=== PATIENT | male | born 1975 | race African-American/Black ===

== ENCOUNTER 2024-09-06 09:59 | Emergency (ER) | payer OTHER, SELFPAY ==
[2024-09-06 10:05] VITALS: BP 157/101; PULSE 75; RESP 16; TEMP 36.4; O2SAT 100
--- NOTE | 2024-09-06 10:18 | ED_ITS ---
HPI - General Adult General Chief complaint: Unspecified Stated complaint: EYE AND FEET ISSUES Time Seen by Provider: 09/06/24 10:16 History of Present Illness HPI narrative: Patient is a 48-year-old male who presents to the ER with concerns of a right eye lump, and tingling/burning in his feet bilaterally. He reports he 1st noticed his feet itching. Patient believes the itching started after he dropped soap on my feet and did not wash it off afterwards. He repor ts since then he has been experiencing tingling and burning in his feet. Patient reports he bought [id number] athlete's foot spray but that has not helped relieve his symptoms. He denies any calf pain, drug use, recent fevers, or history of diabetes. Patient reports his only history is an appendectomy and one other abdominal surgery. He endorses a self diagnosis history of depression and migraines. Patient reports his migraines are cyclical and tend to happen on the Sabbath. Related Data Allergies Allergy/AdvReac Type Severity Reaction Status Date / Time No Known Allergies Allergy Verified 09/06/24 10:12 Review of Systems Review of Systems: All systems reviewed & are unremarkable except as noted in HPI and below Exam Narrative: GENERAL: Well appearing, well-nourished, non-toxic, in no acute distress. HEAD: Normocephalic, atraumatic. R upper eyelid stye-no drainage noted NECK: Supple. No adenopathy, no masses. RESPIRATORY: Airway patent, respirations nonlabored. Clear to auscultation bilaterally, no rales, rhonchi, wheezing. CARDIOVASCULAR: Regular rate and rhythm without murmurs, rubs, or gallops. Peripheral pulses 2+ and equal bilaterally. ABDOMINAL: Soft, nontender, nondistended, no hepatosplenomegaly. Normoactive BS. MUSCULOSKELETAL: Moves all extremities. Strength/ROM intact without gross deformities. SKIN: Warm, dry, normal color. No rashes. L upper chest scaling rash, No rashes/scratches/lesions/abnormalities to feet NEURO: A&O X3. Speech clear. Cranial nerves II-XII intact. No ataxic movements. PSYCHIATRIC: Appropriate mood, but endorses feeling of daily depression. Pt declines a mental health evaluation stating I don't like to talk about the trauma from my past and I'm against taking happy pills. Course Vital Signs Vital signs: Vital Signs Temperature 36.4 C 09/06/24 10:05 Pulse Rate 75 09/06/24 10:05 Respiratory Rate 16 09/06/24 10:05 Blood Pressure 157/101 H 09/06/24 10:05 Pulse Oximetry 100 09/06/24 10:05 Oxygen Delivery Room Air 09/06/24 10:05 Temperature 36.4 C 09/06/24 10:05 Pulse Rate 66 09/06/24 11:15 Respiratory Rate 12 09/06/24 11:15 Blood Pressure 145/95 H 09/06/24 11:15 Pulse Oximetry 100 09/06/24 11:15 Oxygen Delivery Room Air 09/06/24 10:05 Medical Decision Making MDM Narrative Medical decision making narrative: Patient is a 48-year-old male who presents to the ER with concerns of a right eye lump, and tingling/burning in his feet bilaterally. He reports he 1st noticed his feet itching. Patient believes the itching started after he dropped soap on my feet and did not wash it off afterwards. He reports since then he has been experiencing tingling and burning in his feet. Patient reports he bought [id number] athlete's foot spray but that has not helped relieve his symptoms. He denies any calf pain, drug use, recent fevers, or history of diabetes. Patient reports his only history is an appendectomy and one other abdominal surgery. He endorses a self diagnosis history of depression and migraines. Patient reports his migraines are cyclical and tend to happen on the Sabbath. Labs Ordered: Point of care glucose Imaging Ordered: None necessary Medications Ordered: Erythromycin ointment Diagnosis: hordeolum, tingling in bilateral feet, eczema Patient Education/Shared MDM: Results of lab work shared with patient. It was explained to him that he does not have diabetes, so further evaluation of the numbness/tingling in his lower extremities will need to be performed as an outpatient. Pt declined a mental health evaluation. The stye in his R eye will be treated with erythromycin ointment with the first dose given in the ER. L upper chest rash will be treated with hydrocortisone cream. Patient strongly advised to establish care with a PCP as soon as possible. He will be discharged home with a prescription for erythromycin ointment and hydrocortisone cream for the patch of skin on his L upper chest. Strict return precautions provided. Patient verbalized understanding and is in agreement with plan. Vital signs stable at time of discharge. All questions answered. Differential Diagnosis Differential Diagnosis: hordeolum, diabetes, neuropathy, conjunctivitis, eczema Vital Signs Vital Signs: Vital Signs Temperature 36.4 C 09/06/24 10:05 Pulse Rate 75 09/06/24 10:05 Respiratory Rate 16 09/06/24 10:05 Blood Pressure 157/101 H 09/06/24 10:05 Pulse Oximetry 100 09/06/24 10:05 Oxygen Delivery Room Air 09/06/24 10:05 Temperature 36.4 C 09/06/24 10:05 Pulse Rate 66 09/06/24 11:15 Respiratory Rate 12 09/06/24 11:15 Blood Pressure 145/95 H 09/06/24 11:15 Pulse Oximetry 100 09/06/24 11:15 Oxygen Delivery Room Air 09/06/24 10:05 Lab Data Lab results reviewed: Yes I reviewed the patient's lab results. Labs: Lab Results 09/06/24 Range/Units 13:52 POC Capillary Glucose Pending Discharge Plan Discharge Clinical Impression: Hordeolum externum (stye), Numbness and tingling of both lower extremities Patient Disposition: Home Condition: Stable Instructions: Antibiotic Form, Remberto (ED) Additional Instructions: Please return to the ER with any worsening symptoms. Establish care with a primary care provider as soon as possible. Complete your full dose of eye antibiotics. Patient Language: Telugu Prescriptions: New erythromycin 5 mg/gram (0.5 %) ointment 0.5 inch EACH EYE BID Qty: 3.5 0RF hydrocortisone 2.5 % cream 1 applic topical TID PRN (Reason: skin irritation) Qty: 28 0RF acetaminophen 500 mg tablet 500 mg PO QID PRN (Reason: pain, headache) Qty: 20 0RF Follow-up/Referrals: [facility] [Provider Group] [facility] [Provider Group] Dulce Mtz APRN [Advanced Practice Nurse] - Jane Hayward APN-C [Advanced Practice Nurse] - PHYSICIAN,SUBGRADE TESTER [Non-Staff] - Sergo Henriquez MD [Physician] - (ophthalmology) Time of Disposition: 14:07
[2024-09-06 11:15] VITALS: BP 145/95; PULSE 66; RESP 12; O2SAT 100
[2024-09-06] MEDS: ERYTHROMYCIN OPHTH OINTMENT 1 GM TUBE 1 APPLIC EACH EYE (11:20)
--- OUTSIDE RECORDS SUMMARY | 2024-09-06 11:25 | XMS_ITS | Clinical Summary ---
[facility] Organization [facility] [place] [address] [place] [address] Care Team Providers Care Nitrogen Operator Name Role Phone Unavailable Primary Care Provider Unavailabl e Social History Tobacco Use Types Packs/Day Years Used Date Smoking Tobacco: Never Assessed Sex and Gender Information Value Date Recorded Sex Assigned at Not on file Legal Sex Male 1:19 AM PST Gender Identity Not on file Sexual Orientation Not on file Plan of Treatment Not on file
--- OUTSIDE RECORDS SUMMARY | 2024-09-06 11:25 | XMS_ITS | Encounter Summary ---
Author Organization [facility] Address [address] [place] [address] Care Team Providers Care In Flight Refueling Manager Name Role Phone Unavailable Primary Care Provider Unavailabl e Prior Encounters Date Type Department Care Team Description 05/17/2019 Converted CPS Chart Documents [facility] [address] [place] [phone] <No scans attached> 05/17/2019 Converted 13x Documents [facility] [address] [place] [phone] <No scans attached> Plan of Treatment Not on file Procedures Procedure Name Priority Date/Time Associated Diagnosis Comments ORAL SURG CONSULT Routine 04/01/2019 2:00 AM CINDER DUMP CRANE OPERATOR 17 REMOVAL OF IMPACTED TOOTH - PARTIALLY BONY Routine 04/01/2019 2:00 AM CINDER DUMP CRANE OPERATOR 16 EXTRACTION, ERUPTED TOOTH REQUIRING REMOVAL OF BONE AND/OR SECTIONING OF TOOTH Routine 04/01/2019 2:00 AM CINDER DUMP CRANE OPERATOR 11 EXTRACTION, ERUPTED TOOTH REQUIRING REMOVAL OF BONE AND/OR SECTIONING OF TOOTH Routine 04/01/2019 2:00 AM CINDER DUMP CRANE OPERATOR DENTAL PLAN ENROLL 1 Routine 04/01/2019 2:00 AM CINDER DUMP CRANE OPERATOR Visit Diagnoses Not on file
[2024-09-06 13:56] LABS: Glucose Point of Care 104 mg/dl (65-105)
== END 2024-09-06 14:23 | disposition home or self-care (01) ==
PROVIDERS: Emergency Provider Registered Nurse
DX: R20.2 Paresthesia of skin (principal); R20.0 Anesthesia of skin; H00.011 Hordeolum externum right upper eyelid
CPT/HCPCS: 82948; 99283; A9270

== ENCOUNTER 2024-11-05 07:51 | Emergency (ER) | payer OTHER, SELFPAY ==
--- NOTE | ~2024-11-05 | XR_ITS ---
CHEST RADIOGRAPH, PA AND LATERAL CLINICAL HISTORY: cough . COMPARISON: None available TECHNIQUE: PA and lateral views of the chest. FINDINGS The cardiomediastinal silhouette is unremarkable. The lungs are clear. IMPRESSION: No focal infiltrate or effusion. Reviewed, dictated and finalized at location A.
--- OUTSIDE RECORDS SUMMARY | 2024-11-05 07:54 | XMS_ITS | Clinical Summary ---
Author Organization [facility] Health Address [address] [place] [address] Care Team Providers Care Contracts Administrator Name Role Phone Unavailable Primary Care Provider [...]
--- OUTSIDE RECORDS SUMMARY | 2024-11-05 07:54 | XMS_ITS | Encounter Summary ---
Author Organization [facility] Health Address [address] [place] [address] Care Team Providers Care Food And Nutrition Services Assistant Name Role Phone Unavailable Primary Care Provider Unavailabl e Prior Encounters Date Type Department Care Team Description 05/17/2019 Converted CPS Chart Documents [facility] [address] [place] [phone] <No scans attached> 05/17/2019 Converted 13x Documents [facility] [address] [place] [phone] <No scans attached> Plan of Treatment Not on file Procedures Procedure Name Priority Date/Time Associated Diagnosis Comments OS CONSULT Routine 04/01/2019 2:00 AM SLICE CUTTING MACHINE OPERATOR 17 REMOVAL OF IMPACTED TOOTH - PARTIALLY BONY Routine 04/01/2019 2:00 AM SLICE CUTTING MACHINE OPERATOR 16 EXTRACTION, ERUPTED TOOTH REQUIRING REMOVAL OF BONE AND/OR SECTIONING OF TOOTH Routine 04/01/2019 2:00 AM SLICE CUTTING MACHINE OPERATOR 11 EXTRACTION, ERUPTED TOOTH REQUIRING REMOVAL OF BONE AND/OR SECTIONING OF TOOTH Routine 04/01/2019 2:00 AM SLICE CUTTING MACHINE OPERATOR DENTAL PLAN ENROLL 1 Routine 04/01/2019 2:00 AM SLICE CUTTING MACHINE OPERATOR Visit Diagnoses Not on file
--- OUTSIDE RECORDS SUMMARY | 2024-11-05 08:21 | XMS_ITS | Clinical Summary ---
Author Organization [facility] Health Address [address] [place] [address] Care Team Providers Care Tower Hand Name Role Phone Unavailable Primary Care Provider [...]
--- OUTSIDE RECORDS SUMMARY | 2024-11-05 08:21 | XMS_ITS | Encounter Summary ---
Author Organization [facility] Health Address [address] [place] [address] Care Team Providers Care Substitute School Nurse Name Role Phone Unavailable Primary Care Provider Unavailabl e Prior Encounters Date Type Department Care Team Description 05/17/2019 Converted CPS Chart Documents [facility] [address] [place] [phone] <No scans attached> 05/17/2019 Converted 13x Documents [facility] [address] [place] [phone] <No scans attached> Plan of Treatment Not on file Procedures Procedure Name Priority Date/Time Associated Diagnosis Comments OS CONSULT Routine 04/01/2019 2:00 AM JAVA WEBSPHERE DEVELOPER 17 REMOVAL OF IMPACTED TOOTH - PARTIALLY BONY Routine 04/01/2019 2:00 AM JAVA WEBSPHERE DEVELOPER 16 EXTRACTION, ERUPTED TOOTH REQUIRING REMOVAL OF BONE AND/OR SECTIONING OF TOOTH Routine 04/01/2019 2:00 AM JAVA WEBSPHERE DEVELOPER 11 EXTRACTION, ERUPTED TOOTH REQUIRING REMOVAL OF BONE AND/OR SECTIONING OF TOOTH Routine 04/01/2019 2:00 AM JAVA WEBSPHERE DEVELOPER DENTAL PLAN ENROLL 1 Routine 04/01/2019 2:00 AM JAVA WEBSPHERE DEVELOPER Visit Diagnoses Not on file
[2024-11-05 08:31] VITALS: BP 180/105; PULSE 81; RESP 18; TEMP 36.9; O2SAT 100
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
[2024-11-05 08:46] VITALS: RESP 16; O2SAT 100
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
--- NOTE | 2024-11-05 09:16 | ED.GENADULT ---
HPI - General Adult General Chief complaint: Unspecified Stated complaint: sweating issues Time Seen by Provider: 11/05/24 08:16 History of Present Illness HPI narrative: Patient is a 48-year-old male who presents ER with reports of feeling sweaty. It occurs at night when he sleeping. He thinks the air conditioner is on in his dad's room but not the living room where he is sleeping. He has had infrequent cough. He is concerned he may have an infection. No known sick contacts. Mild body aches. Related Data Allergies Allergy/AdvReac Type Severity Reaction Status Date / Time No Known Allergies Allergy Verified 11/05/24 08:40 Review of Systems Review of Systems: All systems reviewed & are unremarkable except as noted in HPI and below Constitutional: Constitutional: Reports no additional constitutional complaints Cardiovascular: Cardiovascular: Reports no additional cardiovascular complaints Respiratory: Respiratory: Reports no additional respiratory complaints Gastrointestinal: Gastrointestinal: Reports no additional gastrointestinal complaints Musculoskeletal: Musculoskeletal: Reports no additional musculoskeletal complaints PMFSH Past Medical History Medical History (Updated 11/05/24 @ 10:18 by Wong Varela MD) Healthy adult male Surgical History Surgical History (Updated 11/05/24 @ 09:20 by Wong Varela MD) No pertinent past surgical history Exam Narrative: GENERAL: Well-appearing, well-nourished, and in no acute distress. HEAD: Normocephalic, atraumatic. CHEST: Clear to auscultation. No respiratory distress. HEART: Regular rate and rhythm. Normal peripheral pulses. ABDOMEN: Soft, nontender, nondistended. EXTREMITIES: Normal range of motion. No edema. SKIN: Warm, dry, no rash. NEURO: Alert and oriented x3. PSYCH: Normal mood and affect. Course Course Emergency Course: Unremarkable evaluation. Appropriate for discharge home. Vital Signs Vital signs: Vital Signs Temperature 98.5 F 11/05/24 08:31 Pulse Rate 81 11/05/24 08:31 Respiratory Rate 18 11/05/24 08:31 Blood Pressure 180/105 H 11/05/24 08:31 Pulse Oximetry 100 11/05/24 08:31 Oxygen Delivery Room Air 11/05/24 08:31 Temperature 98.5 F 11/05/24 08:31 Pulse Rate 81 11/05/24 08:31 Respiratory Rate 16 11/05/24 08:46 Blood Pressure 180/105 H 11/05/24 08:31 Pulse Oximetry 100 11/05/24 08:46 Oxygen Delivery Room Air 11/05/24 08:31 Medical Decision Making Vital Signs Vital Signs: Vital Signs Temperature 98.5 F 11/05/24 08:31 Pulse Rate 81 11/05/24 08:31 Respiratory Rate 18 11/05/24 08:31 Blood Pressure 180/105 H 11/05/24 08:31 Pulse Oximetry 100 11/05/24 08:31 Oxygen Delivery Room Air 11/05/24 08:31 Temperature 98.5 F 11/05/24 08:31 Pulse Rate 81 11/05/24 08:31 Respiratory Rate 16 11/05/24 08:46 Blood Pressure 180/105 H 11/05/24 08:31 Pulse Oximetry 100 11/05/24 08:46 Oxygen Delivery Room Air 11/05/24 08:31 Lab Data Labs: Lab Results 11/05/24 Range/Units 08:38 Influenza A (RT-PCR) Negative (Negative) Influenza B (RT-PCR) Negative (Negative) RSV (RT-PCR) Negative (Negative) SARS-CoV-2 RNA (RT-PCR) Negative (Negative) Imaging Data Radiologist's impression: ITS Impressions Chest X-Ray 11/05/24 09:10 IMPRESSION: No focal infiltrate or effusion. Discharge Plan Discharge Clinical Impression: Sweating Patient Disposition: Home Condition: Stable Instructions: Normal Exam (ED) Additional Instructions: Return ER if you have additional concerns, you had an unremarkable evaluation with negative viral testing and negative a chest x-ray. Patient Language: [place] Citizen Prescriptions: No Action erythromycin 5 mg/gram (0.5 %) ointment 0.5 inch EACH EYE BID Qty: 3.5 0RF hydrocortisone 2.5 % cream 1 applic topical TID PRN (Reason: skin irritation) Qty: 28 0RF acetaminophen 500 mg tablet 500 mg PO QID PRN (Reason: pain, headache) Qty: 20 0RF Follow-up/Referrals: PHYSICIAN,MEDIA MARKETING SPECIALIST [Primary Care Provider] - 1 Week
[2024-11-05 09:25] LABS: Influenza A QL RT-PCR Negative (Negative); Influenza B QL RT-PCR Negative (Negative); RSV RNA, RT-PCR Negative (Negative); SARS-CoV-2 RNA PCR Negative (Negative)
[2024-11-05 10:28] VITALS: BP 149/113; PULSE 65; RESP 16; O2SAT 99
== END 2024-11-05 10:28 | disposition home or self-care (01) ==
PROVIDERS: Emergency Provider Emergency Medicine
DX: R61 Generalized hyperhidrosis (principal); Z20.822 Contact with and (suspected) exposure to COVID-19
CPT/HCPCS: 71046; 87637; 99283